=== PATIENT | male | born 1960 | race Caucasian/White ===

== ENCOUNTER 2020-09-02 13:28 | Day surgery (SDC) | payer BC, OTHER ==
[2020-09-02] MEDS ORDERED: Sodium Chloride 0.9% 10 ML Syringe FLUSH PRN (13:30)
[2020-09-02] MEDS: Lactated Ringers 1,000 ML IV SCH (14:02)
[2020-09-02] MEDS ORDERED: Midazolam 1 MG/ML 2 ML SDV ONE ×2 (15:17→15:26)
[2020-09-02] MEDS ORDERED: Propofol 200 MG/20 ML SDV ONE ×2 (15:17→15:26)
--- NOTE | 2020-09-02 15:34 | PCM.PN ---
- General Info Date of Service: 09/02/20 - Review of Systems Systems Review Comment:: 60-year-old male referred for colonoscopy. He does state that he has a history of colon polyps. He denies any recent change in bowel pattern. His recent history and physical is reviewed and no significant changes are noted. I discussed the proposed colonoscopy with the patient. He agrees to proceed accepting risks. - Patient Data Vitals - Most Recent: Last Vital Signs Temp 98.0 F 09/02/20 14:05 Pulse 97 09/02/20 14:05 Resp 18 09/02/20 14:05 BP 154/96 H 09/02/20 14:05 Pulse Ox 98 09/02/20 14:05 Weight - Most Recent: 90.718 kg Med Orders - Current: Current Medications Lactated Ringer's (Ringers, Lactated) 1,000 mls @ 125 mls/hr IV ASDIRECTED THOMAS Last Admin: 09/02/20 14:02 Dose: 125 mls/hr Documented by: Sodium Chloride (Saline Flush) 10 ml FLUSH ASDIRECTED PRN PRN Reason: Keep Vein Open Discontinued Medications Midazolam HCl (Versed 1 Mg/Ml) Confirm Administered Dose 2 mg .ROUTE .STK-MED ONE Stop: 09/02/20 15:18 Propofol (Diprivan 20 Ml) Confirm Administered Dose 400 mg .ROUTE .STK-MED ONE Stop: 09/02/20 15:18 Sepsis Event Note - Focused Exam Vital Signs: Vital Signs Temp Pulse Resp BP Pulse Ox 09/02/20 14:05 98.0 F 97 18 154/96 H 98 - Problem List Review Problem List Initiated/Reviewed/Updated: Yes - My Orders Last 24 Hours: My Active Orders 09/02/20 13:30 Patient Status [ADT] Routine Peripheral IV Care [RC] . DIRECTED Verify Patient Consent Obtain [RC] ASDIRECTED Lactated Ringers [Ringers, Lactated] 1,000 ml IV ASDIRECTED Sodium Chloride 0.9% [Saline Flush] 10 ml FLUSH ASDIRECTED PRN Peripheral IV Insertion Adult [OM.PC] Routine - Assessment Assessment:: History of colon polyps - Plan Plan:: Colonoscopy
--- NOTE | 2020-09-02 16:11 | PCM.OPNOTE ---
- General Post-Op/Procedure Note Date of Surgery/Procedure: 09/02/20 Operative Procedure(s): Colonoscopy with Polypectomy Findings: Multiple small polyps Pre Op Diagnosis: History of colon polyps Post-Op Diagnosis: Colon Polyps Anesthesia Technique: MAC Primary Surgeon: Caden Mccann Pathology: Colon polyps EBL in mLs: 2 Complications: None Condition: Good
[2020-09-02 17:51] VITALS: BP 139/80; PULSE 73
--- NOTE | 2020-09-02 20:16 | OR ---
Date of Procedure: 09/02/2020 PREOPERATIVE DIAGNOSIS: History of colon polyps. POSTOPERATIVE DIAGNOSES: Colon polyps. OPERATION PERFORMED: Colonoscopy with polypectomy. INDICATIONS FOR SURGERY: This 60-year-old male presents today for surveillance colonoscopy because of a history of colon polyps. FINDINGS: Small polyps were noted in 3 areas of the colon, the transverse colon, the splenic flexure, and the sigmoid colon. Each of these areas had 1 to 2 small polyps, 4 to 5 mm in size. The remainder of the colon appeared normal. DESCRIPTION OF PROCEDURE: The patient was taken to the operating room. He was given intravenous sedation, and with him in the left lateral decubitus position, digital rectal exam was performed showing no rectal masses. The Olympus colonoscope was inserted into the rectum. Retroflexed examination of the rectal canal was performed. The scope was then carefully advanced under direct visualization through the entire length of the colon until the cecum was reached. Cecal acquisition was confirmed by noting the normal internal cecal anatomy including the appendiceal orifice and the ileocecal valve, and the light was also noted to transilluminate the abdominal wall in the right lower quadrant. After examining the cecum, the scope was slowly withdrawn, sequentially re-examining the colonic segments. During withdrawal of the scope, small polyps at the 3 above-described areas are identified. As these are encountered, they are removed in their entirety with cold biopsy forceps. The polyps from all 3 of these areas are retrieved and submitted for pathologic evaluation. After the colon and rectum had been fully examined, there was no sign of any complication, the scope was removed, and the patient was taken from the operating room in satisfactory condition. ESTIMATED BLOOD LOSS: 2 mL. COMPLICATIONS: None. PROGNOSIS: Good. ADAM Mccann MD /[id number]
== END 2020-09-02 17:22 | disposition home or self-care (01) ==
LOC: LL.SDS 13:28
PROVIDERS: ATTEND Surgery
PROC: 0DBN8ZZ Excision of Sigmoid Colon, Via Natural or Artificial Opening Endoscopic (ICD-10-PCS; principal; 2020-09-02)
PROC: 0DBL8ZZ Excision of Transverse Colon, Via Natural or Artificial Opening Endoscopic (ICD-10-PCS; 2020-09-02)
DX: Z12.11 Encounter for screening for malignant neoplasm of colon (principal); D12.5 Benign neoplasm of sigmoid colon; D12.3 Benign neoplasm of transverse colon; R73.03 Prediabetes
CPT/HCPCS: 00812; J2250; J2704; J7120; U0002

== ENCOUNTER 2025-02-05 08:36 | Day surgery (SDC) | payer MEDICARE ==
[~2025-02-05 08:36] MED LIST: Midazolam 1 MG/ML 2 ML SDV ONE; Propofol 200 MG/20 ML SDV ONE; Sodium Chloride 0.9% 10 ML Syringe FLUSH PRN
[2025-02-05] MEDS: Lactated Ringers 1,000 ML IV SCH (09:14)
[2025-02-05 11:14] VITALS: PULSE 74
[2025-02-05 11:15] VITALS: BP 119/70
== END 2025-02-05 11:14 | disposition home or self-care (01) ==
LOC: LL.SDS 08:36
PROVIDERS: ATTEND Surgery
DX: Z12.11 Encounter for screening for malignant neoplasm of colon (principal); D12.4 Benign neoplasm of descending colon; Z79.82 Long term (current) use of aspirin; Z79.899 Other long term (current) drug therapy; Z86.0100 Personal history of colon polyps, unspecified
CPT/HCPCS: J2250; J7120